=== PATIENT | female | born 1990 | race Caucasian/White ===

== ENCOUNTER 2020-01-27 08:02 | Inpatient (IN) ==
[2020-01-27] MEDS ORDERED: Penicillin G Potassium IV 5,000,000 UNITS in NS 0.9% 100 ml BAG 100 ML IVPB ONE (09:17)
[2020-01-27] MEDS ORDERED: Lactated Ringers 1000 ml BAG 1,000 ML IV ONE ×2 (09:17→15:08)
[2020-01-27] MEDS ORDERED: Oxytocin in LR 20 UNITS/1,000 ML BAG IVPB ONE (09:26)
[2020-01-27 09:49] LABS: Hematocrit 36 % (35-47); Hemoglobin 12.2 g/dL (12.0-16.0); Mean Corpuscular HGB Conc 34 g/dL (31-36); Mean Corpuscular Hemoglobin 31 pg (27-31); Mean Corpuscular Volume 92 fL (80-97); Mean Platelet Volume 10.9 fL (7.4-10.4); Platelet Count 169 10^3/uL (150-450); Red Blood Count 3.89 10^6 /uL (3.70-4.87); Red Cell Distribution Width 16 % (10-15); White Blood Count 9.3 10^3/uL (3.5-10.8)
[2020-01-27 09:59] LABS: Urine Benzodiazepine Screen None Detected (None Detect); Urine Opiates Screen None Detected (None Detect)
[2020-01-27] MEDS ORDERED: Oxytocin in LR 20 UNITS/1,000 ML BAG IVPB SCH (10:00)
[2020-01-27] MEDS ORDERED: Lactated Ringers 1000 ml BAG 1,000 ML IV SCH ×3 (10:00→23:00)
[2020-01-27 12:11] LABS: ABS Basophils 0.1 10^3/ul (0-0.2); ABS Eosinophils 0.3 10^3/ul (0-0.6); ABS Monocytes 0.6 10^3/ul (0-0.8); Eosinophil % 2.8 %; Nucleated Red Blood Cells % 0.1
[2020-01-27] MEDS: Penicillin G Potassium IV 3,000,000 UNITS in NS 0.9% 100 ml BAG 100 ML IVPB SCH ×2 (13:45→18:02)
[2020-01-27] MEDS ORDERED: OBEPIDURAL 250 ML EPIDURAL ONE (14:21)
[2020-01-27] MEDS ORDERED: Bupivacaine 0.25% SDV PF 10 ML VIAL INJ ONE (14:44)
[2020-01-27] MEDS ORDERED: EPHEDrine (Pressors) 50 MG/ML VIAL IV PUSH PRN (15:08)
[2020-01-27] MEDS ORDERED: Sodium Citrate/Citric Acid LIQ 15 ML UDC PO PRN (15:08)
[2020-01-27] MEDS ORDERED: Phenylephrine 40 mcg/mL 10mL (400mcg) SYRINGE IV PUSH PRN (15:08)
[2020-01-27] MEDS ORDERED: OBEPIDURAL 250 ML EPIDURAL SCH (16:00)
[2020-01-27] MEDS ORDERED: Witch Hazel PAD JAR ONE (20:57)
[2020-01-27] MEDS ORDERED: Dibucaine 1% OINT 28.35 GM TUBE ONE (20:57)
[2020-01-27] MEDS ORDERED: Ammonia Inhalant 1 EA AMP ONE (20:58)
[2020-01-27] MEDS ORDERED: Glycerin ADULT 2.4 gm SUPP PR PRN (22:16)
[2020-01-27] MEDS ORDERED: Witch Hazel PAD JAR TOPICAL PRN (22:16)
[2020-01-27] MEDS ORDERED: Dibucaine 1% OINT 28.35 GM TUBE PR PRN (22:16)
[2020-01-28 07:35] LABS: ABS Basophils 0.2 10^3/ul (0-0.2); ABS Eosinophils 0.4 10^3/ul (0-0.6); ABS Lymphocytes 2.5 10^3/ul (1.0-4.8); ABS Monocytes 0.9 10^3/ul (0-0.8); Eosinophil % 2.7 %; Hematocrit 34 % (35-47); Hemoglobin 11.5 g/dL (12.0-16.0); Lymphocyte % 17.6 %; Mean Corpuscular HGB Conc 34 g/dL (31-36); Mean Corpuscular Hemoglobin 31 pg (27-31); Mean Corpuscular Volume 93 fL (80-97); Mean Platelet Volume 11.6 fL (7.4-10.4); Nucleated Red Blood Cells % 0.2; Platelet Count 166 10^3/uL (150-450); Red Blood Count 3.68 10^6 /uL (3.70-4.87); Red Cell Distribution Width 16 % (10-15); White Blood Count 14.2 10^3/uL (3.5-10.8)
[2020-01-29 08:30] VITALS: BP 113/74
== END 2020-01-29 11:55 | disposition home or self-care (01) | DRG 807 ==
LOC: MCHOBOUT 08:02 → MCHOB 08:40
PROVIDERS: ADMIT Obstetrics & Gynecology; ATTEND Obstetrics & Gynecology